=== PATIENT | female | born 1965 | race Caucasian/White ===

== ENCOUNTER → 2017-06-20 | Outpatient (CLI) | payer OTHER, SELFPAY | PROVIDERS: Visit Provider Family Medicine | DX: M54.32 Sciatica, left side (principal) | CPT/HCPCS: 72148; 76376 ==

== ENCOUNTER 2017-08-05 16:00 | Outpatient (RCR) | payer OTHER, SELFPAY | END 2017-08-05 16:01 | disposition home or self-care (01) | LOC: PT 16:00 | PROVIDERS: Family Provider Family Medicine; PCP Family Medicine; Visit Provider Neurological Surgery | DX: M54.5 Low back pain (principal) | CPT/HCPCS: 97033; 97110 ==

== ENCOUNTER → 2018-05-15 08:14 | Outpatient (CLI) | payer OTHER, SELFPAY ==
--- NOTE | 2018-05-15 08:22 | MM_ITS ---
MM Dig screening mamm BI w/CAD ORDERING PHYSICIAN : Jyotsna Nance MD PATIENT AGE: 53 years GENDER: Female COMPARISON: Bilateral mammogram March 2017, 2016 September 2014 . Left mammogram 17 INDICATION: ITS.REASON: SCREENING TECHNIQUE: Standard CC and MLO images were obtained. R2 CAD reviewed. FINDINGS: Low-density breast with generalized fatty replacement with minimal residual fibroglandular elements no suspicious calcifications. No suspicious or dominant mass RIGHT BREAST:. Stable No interval change. Follow-up in one year LEFT BREAST:. Stable. Follow-up in one year. The minor nodularity seen at the retroareolar region particularly on cc view is similar to 2015 & 2017 study with no significant new findings. IMPRESSION: Stable bilateral mammogram with no significant new findings. BI-RADS Category: 1 Negative RECOMMENDED FOLLOW-UP: 1YR 1 YEAR FOLLOW-UP (A letter has been sent to the patient regarding results of the study.)
== END ==
PROVIDERS: PCP Family Medicine; Visit Provider Family Medicine
DX: Z12.31 Encounter for screening mammogram for malignant neoplasm of breast (principal)
CPT/HCPCS: 77067

== ENCOUNTER → 2019-06-01 16:27 | Outpatient (CLI) | payer OTHER, SELFPAY ==
--- NOTE | 2019-06-01 16:31 | MM_ITS ---
PROCEDURE: MM DIG SCREENING MAMM BI W/CAD CLINICAL INDICATION: SCREENING There is a history of breast cancer patient's mother diagnosed before menopause. COMPARISON: DMSB DIG MAMM-SCREEN TJ W/CAD from 04/22/2017 DMDXUAVL DIG MAMM-DX UNI A/VWS-LT W/CAD from 05/02/2017 [facility] MM Dig screening mamm BI w/CAD from 05/15/2018 TECHNIQUE: Standard CC and MLO images were obtained. R2 CAD reviewed. FINDINGS: Breasts are composed primarily of fat with scattered fibroglandular densities throughout each breast. There is a stable benign-appearing small density just deep to the nipple of the left breast. There is no suspicious lesion and no suspicious microcalcifications. IMPRESSION: Fibrofatty parenchyma with no suspicious lesions seen BI-RAD Category: 2 Benign Finding(s) FOLLOW-UP: 1YR 1 Year Follow-up (A letter has been sent to the patient regarding results of the study.) Dictated by: Dr. Carlos William MD 06/02/2019 14:[address] Carlos William MD in [place] 06/02/2019 14:18
== END ==
PROVIDERS: PCP Family Medicine; Visit Provider Family Medicine
DX: Z12.31 Encounter for screening mammogram for malignant neoplasm of breast (principal)
CPT/HCPCS: 77067

== ENCOUNTER → 2020-06-10 16:01 | Outpatient (CLI) | payer OTHER, SELFPAY ==
--- NOTE | 2020-06-10 16:06 | MM_ITS ---
PROCEDURE: MM DIG SCREENING MAMM BI W/CAD Referring Doctor: David Hi Patient Age:55Y CLINICAL INDICATION: SCREENING 55-year-old screening mammogram No hormones, no new complaints Family history-mother with breast cancer age 40. COMPARISON: MG DMSB DIGITAL MAMM-SCREEN BILATERAL from 12/13/2011 MG DMSB DIG MAMM-SCREEN TJ from 10/25/2014 MG DMSB DIG MAMM-SCREEN TJ from 04/12/2016 MG DMSB DIG MAMM-SCREEN TJ W/CAD from 04/22/2017 MG DMDXUAVL DIG MAMM-DX UNI A/VWS-LT W/CAD from 05/02/2017 MG [facility] MM Dig screening mamm BI w/CAD from 05/15/2018 MG MM DIG SCREENING MAMM BI W/CAD from 06/01/2019 TECHNIQUE: Standard CC and MLO images were obtained. R2 CAD reviewed. Bilateral digital breast tomosynthesis included. FINDINGS: Minimal residual fibroglandular elements. Breast [id number] diffuse fatty replacement. Overall stable architecture scattered minor asymmetric densities but with no new areas of concern. No new suspicious or dominant mass.. No suspicious calcifications. CAD computer review highlights no new areas of significant the concern. Bilateral follow-up 1 year recommended Right breast no new areas of concern Small stable minor area density at superior right breast again noted stable since at least the 2014 and actually was seen back in 2007 mammogram as well Left breast no new areas of concern. Again stable tiny area of density towards 6 o'clock noted unchanged since multiple previous study dating back to 2014 IMPRESSION: Stable mammogram. No new areas of significant concern. Longstanding stable minor areas asymmetry withinotherwise fatty breast Routine annual 1 year screening mammogram recommended BI-RAD Category: 2 Benign Finding(s) FOLLOW-UP: 1YR 1 Year Follow-up (A letter has been sent to the patient regarding results of the study.) Dictated by: Bird Anderson MD 06/11/2020 12:32 Bird Anderson MD in [place] 06/11/2020 12:33
== END ==
PROVIDERS: PCP Family Medicine; Visit Provider Family Medicine
DX: Z12.31 Encounter for screening mammogram for malignant neoplasm of breast (principal)
CPT/HCPCS: 77063; 77067

== ENCOUNTER → 2020-12-07 15:24 | Outpatient (CLI) | payer OTHER, SELFPAY | PROVIDERS: Visit Provider Internal Medicine Gastroenterology | DX: Z01.812 Encounter for preprocedural laboratory examination (principal); Z20.822 Contact with and (suspected) exposure to COVID-19; Z12.11 Encounter for screening for malignant neoplasm of colon | CPT/HCPCS: U0003 ==

== ENCOUNTER 2020-12-09 07:43 | Day surgery (SDC) | payer OTHER, SELFPAY ==
[2020-12-01 08:41] VITALS: BMI 41.1
[2020-12-09 08:11] VITALS: BP 146/75; PULSE 77; RESP 18; TEMP 36.4; O2SAT 98
--- NOTE | 2020-12-09 08:56 | P.PN_ITS ---
[facility] Anesthesia Checklist - Structural Data Admitted From: Home Planned Operative Procedure/s: colonoscopy Consent for Planned Operative Procedure(s) Verified: Yes - Airway Assessment C-Spine Mobility Assessed: Yes TMJ Mobility Assessed: Yes Dentition: Good Dentition - Neurological Assessment Level of Consciousness: Awake, Alert, Appropriate - Anesthesia Plan Anesthesia Risk discussed: Yes Anesthesia Plan: Verified ASA Class: II Anesthesia Type: MAC [facility] History I have reviewed the patient's past medical history: Yes Medical History: Reports:: Hypertension Denies:: Cancer, Diabetes Mellitus Type 1, Diabetes Mellitus Type 2, Internal Pacemaker, MRSA, Seizures *Have you ever received a pneumonia vaccine?: No *Have you received a flu vaccine this season?: Yes Anesthesia experience/problems:: none Laterality Cases: Bilateral: Total Knee Replacement Other Surgeries: No: Pacemaker Amputation: No Fractures: No - *Social History Last grade of school completed: High school graduate Smoking Status: Never smoker Alcohol Intake: never Substance Use Type: denies use *Occupational Status:: employed Housing: house Household Members: spouse *Travel in the last 8 weeks: None Family Hx:: No significant family history
[2020-12-09 08:57] VITALS: O2SAT 97
--- NOTE | 2020-12-09 09:20 | HMH.PROC ---
[facility] Procedure Note Procedure Note:: Colonoscopy Procedure Report: Colonoscopy with cold snare polypectomy Endoscopist: Josias Lazo II, MD Referring physician: CARIDAD Woodward/Christiano Hi MD Date of Procedure: December 09, 2020 Equipment: Olympus 190 variable stiffness pediatric colonoscope Sedation: MAC sedation Indication: Mrs. Bradford is a 55-year-old female who is here for initial screening colonoscopy. She reports no abdominal pain, weight loss, change in her bowel habits or rectal bleeding. She reports no family history of colon cancer. Procedure: Prior to the procedure, a history and physical exam was performed, and patient's medications and allergies were reviewed. The risks, benefits and alternatives of the sedation and procedure were discussed with the patient. All questions were answered and informed consent was obtained. The patient was brought to the procedure room. Patient identification and proposed procedure were verified by the physician and the nurse. The patient was placed in a left lateral decubitus position and the scope was passed under direct vision. Throughout the procedure, the patient's blood pressure, pulse, and oxygen saturations were monitored continuously. The colonoscopy was accomplished without difficulty. The patient tolerated the procedure well. Findings: On digital rectal examination there was normal rectal tone. There were no external hemorrhoids. The colonoscope was introduced through the anal canal to the rectum and advanced to the cecum. The ileocecal valve and appendiceal orifice were identified. The scope was advanced a short distance into the ileum which appeared grossly normal. The scope was then withdrawn into the colon. There were 4 colon polyps (ascending x1 (12-13 mm), descending x2 (4 and 4 mm) and sigmoid x1 (5 mm)) which were all removed via cold snare polypectomy. There were scattered diverticuli throughout the descending and sigmoid colon (LEFT colon). The rectum itself was normal. Upon retroflexion within the rectum there were grade 1-2 internal hemorrhoids. The preparation was excellent throughout with Swain Preparation Score of 9. The cecal time was 12 minutes. Impression: 1. Colonic polyps x4 2. Left-sided diverticulosis 3. Grade 1-2 internal hemorrhoids Plan: I will follow up the polyp pathology and recommend repeat colonoscopy again in 3-5 years based upon the number and size of adenomatous polyps and polyp histology. I would encourage bulking fiber supplementation on a long-term daily maintenance basis.
[2020-12-09 09:25] VITALS: BP 150/81; PULSE 89; RESP 18; O2SAT 98
[2020-12-09 09:35] VITALS: BP 135/80; PULSE 85; RESP 18; O2SAT 98
[2020-12-09 09:45] VITALS: BP 142/83; PULSE 81; RESP 18; O2SAT 98
[2020-12-09 10:00] VITALS: BP 142/83; PULSE 87; RESP 18; O2SAT 98
== END 2020-12-09 10:10 | disposition home or self-care (01) ==
LOC: OUTP 07:45
PROVIDERS: PCP Family Medicine; Visit Provider Internal Medicine Gastroenterology
PROC: 0DJD8ZZ Inspection of Lower Intestinal Tract, Via Natural or Artificial Opening Endoscopic (ICD-10-PCS; CPT 45378; principal; 2020-12-09 09:00)
DX: Z12.11 Encounter for screening for malignant neoplasm of colon (principal); I10 Essential (primary) hypertension; Z88.0 Allergy status to penicillin; K63.5 Polyp of colon; K57.30 Diverticulosis of large intestine without perforation or abscess without bleeding; K64.0 First degree hemorrhoids; Z79.899 Other long term (current) drug therapy
CPT/HCPCS: 45385

== ENCOUNTER → 2021-06-22 08:07 | Outpatient (CLI) | payer OTHER, SELFPAY ==
--- NOTE | 2021-06-22 08:10 | MM_ITS ---
PROCEDURE INFORMATION: Exam: MG Bilateral Screening 3D Mammography Exam date and time: 06/22/2021 8:10 AM Age: 56 years old Clinical indication: Encounter for screening mammogram for malignant neoplasm of breast TECHNIQUE: Imaging protocol: Bilateral screening tomosynthesis and 2D mammography including computer-aided detection (CAD) when performed. COMPARISON: 1. MG MM DIG SCREENING MAMM BI W/CAD 06/10/2020 4:05 PM 2. MG MM DIG SCREENING MAMM BI W/CAD 06/01/2019 4:38 PM FINDINGS: MAMMOGRAPHY: Breast composition: The breast tissue is composed of scattered areas of fibroglandular density. Mass: None. Architectural distortion: None. Calcifications: No suspicious calcifications. Asymmetric density: None. Skin thickening: None. Axillary adenopathy: None. IMPRESSION: No mammographic evidence of malignancy. Annual screening is recommended unless otherwise clinically indicated. ASSESSMENT: BI-RADS Category 1: Negative
== END ==
PROVIDERS: PCP Nurse Practitioner; Visit Provider Nurse Practitioner
DX: Z12.31 Encounter for screening mammogram for malignant neoplasm of breast (principal)
CPT/HCPCS: 77063; 77067

== ENCOUNTER → 2022-02-05 06:39 | Outpatient (CLI) | payer OTHER, SELFPAY ==
[2022-02-05 19:30] LABS: Alanine Aminotransferase 20 U/L (12-78); Albumin/Globulin Ratio 1.4 (1.1-1.8); Alkaline Phosphatase 108 U/L (38-126); Anion Gap 11.4 mEq/L (5-15); Aspartate Amino Transferase 29 U/L (14-36); Blood Urea Nitrogen 16 mg/dl (7-17); Calcium 9.3 mg/dl (8.4-10.2); Carbon Dioxide 23 mmol/L (22.0-30.0); Chloride 107 mmol/L (98-107); Estimated Glomerular Filt Rate 86 ml/min (>60); GFR (African American) 104 ML/MIN (>60); Globulin 2.8 g/dL (1.3-3.2); Glucose 99 mg/dl (74-100); Potassium 4.4 mmoL/L (3.5-5.1); Sodium 137 mmol/L (136-145); Total Protein,Serum 6.8 g/dl (6.3-8.2)
[2022-02-05 19:48] LABS: Bilirubin,Total 0.1 mg/dl (0.2-1.3)
== END ==
PROVIDERS: PCP Nurse Practitioner; Visit Provider Nurse Practitioner
DX: I10 Essential (primary) hypertension (principal)
CPT/HCPCS: 80053

== ENCOUNTER → 2022-03-19 16:40 | Outpatient (CLI) | payer OTHER, SELFPAY ==
[2022-03-19 16:51] LABS: Adenovirus,PCR Not Detected (NotDetected); Bordetella Pertussis Not Detected (NotDetected); Chlamydophila Pneumoniae, PCR Not Detected (NotDetected); Coronavirus 19, PCR Not Detected (NotDetected); Coronavirus 229E Not Detected (NotDetected); Coronavirus NL63 Not Detected (NotDetected); Coronavirus OC43 Not Detected (NotDetected); Coronovirus HKU1,PCR Not Detected (NotDetected); Human Metapneumovirus Not Detected (NotDetected); Influenza A, PCR Not Detected (NotDetected); Influenza AH1, 2009 Not Detected (NotDetected); Influenza AH1, PCR Not Detected (NotDetected); Influenza AH3,PCR Not Detected (NotDetected); Influenza B, PCR Not Detected (NotDetected); Mycoplasma Pneumoniae, PCR Not Detected (NotDetected); Parainfluenza 1, PCR Not Detected (NotDetected); Parainfluenza 2, PCR Not Detected (NotDetected); Parainfluenza 3, PCR Not Detected (NotDetected); Parainfluenza 4, PCR Not Detected (NotDetected); Respiratory Syncytial Virus Not Detected (NotDetected); Rhinovirus/Enterovirus Not Detected (NotDetected)
--- NOTE | 2022-03-19 17:02 | XR_ITS ---
PROCEDURE INFORMATION: Exam: XR Chest Exam date and time: 03/19/2022 5:03 PM Age: 57 years old Clinical indication: Other: Chest pain TECHNIQUE: Imaging protocol: Radiologic exam of the chest. Views: 2 views. COMPARISON: CR CXR CHEST(2 VIEWS-NOT PORTABLE) 05/02/2016 11:53 AM FINDINGS: Lungs: Minimal regions of parenchymal scarring again demonstrated in the right upper lobe. Findings stable. Pleural spaces: Unremarkable. No pleural effusion. No pneumothorax. Heart/Mediastinum: Unremarkable. No cardiomegaly. Bones/joints: Unremarkable. IMPRESSION: No acute findings.
--- NOTE | 2022-03-19 17:14 | ECG_ITS ---
APPROVED REPORT Exam: Resting ECG HR:86 bpm ECG Measurements Heart Rate [address] 184 P 51 QRSd 96 QRS -40 QT 346 T 41 QTc 390 Conclusion SINUS RHYTHM LEFT AXIS DEVIATION Late r wave progression ABNORMAL ECG UNCONFIRMED REPORT Electronically signed by : Shiraz Powers MD 03/20/2022 21:10:11
[2022-03-19 17:48] LABS: Basophils # 0.1 K/mm3 (0-0.2); Basophils % 0.6 % (0.1-2.0); Eosinophils # 0.1 K/mm3 (0.0-0.4); Eosinophils % 1.1 % (0.1-12.0); Hematocrit 43.2 % (37.0-47.0); Hemoglobin 13.6 g/dL (12.2-16.2); Lymphocytes # 2.5 K/mm3 (0.7-4.5); Lymphocytes % 33.1 % (10-50); Mean Corpuscular HGB Conc 31.5 g/dL (31.8-35.4); Mean Corpuscular Hemoglobin 28.5 pg (27.0-31.2); Mean Corpuscular Volume 90.4 fl (81-99); Mean Platelet Volume 8.8 fl (7.4-10.4); Monocytes # 0.5 K/mm3 (0.1-1.0); Monocytes % 5.9 % (1.7-9.3); Neutrophils # 4.5 K/mm3 (1.8-7.8); Neutrophils % 59.2 % (37.0-80.0); Platelet Count 261 K/mm3 (142-424); Red Blood Count 4.78 M/mm3 (4.20-5.40); Red Cell Distribution Width 14.4 % (11.5-17.5); White Blood Count 7.6 K/mm3 (4.8-10.8)
[2022-03-19 18:36] LABS: Alanine Aminotransferase 24 U/L (12-78); Albumin Level 4.4 g/dl (3.5-5.0); Albumin/Globulin Ratio 1.5 (1.1-1.8); Alkaline Phosphatase 126 U/L (38-126); Anion Gap 16.5 mEq/L (5-15); Aspartate Amino Transferase 28 U/L (14-36); Blood Urea Nitrogen 18 mg/dl (7-17); Calcium 9.7 mg/dl (8.4-10.2); Carbon Dioxide 23 mmol/L (22.0-30.0); Chloride 102 mmol/L (98-107); Estimated Glomerular Filt Rate 103 ml/min (>60); GFR (African American) 124 ML/MIN (>60); Globulin 2.9 g/dL (1.3-3.2); Glucose 95 mg/dl (74-100); Potassium 4.5 mmoL/L (3.5-5.1); Sodium 137 mmol/L (136-145); Total Protein,Serum 7.3 g/dl (6.3-8.2)
[2022-03-19 18:42] LABS: C-Reactive Protein 10.3 mg/L (0-4)
[2022-03-19 18:47] LABS: NT Pro Brain Natriuretic Pep. 212 pg/mL (0-125)
[2022-03-19 19:27] LABS: Bilirubin,Total < 0.1 mg/dl (0.2-1.3); Troponin I < 0.01 ng/ml (0.00-0.034)
[2022-03-19 21:29] LABS: Erythrocyte Sedimentation Rate 17 mm/hr (0-30)
== END ==
LOC: LAB 16:42 → LAB.DROPOF 03-20 06:29
PROVIDERS: PCP Nurse Practitioner; Visit Provider Nurse Practitioner
DX: R07.9 Chest pain, unspecified (principal); I10 Essential (primary) hypertension; R53.83 Other fatigue; Z20.822 Contact with and (suspected) exposure to COVID-19
CPT/HCPCS: 36415; 71046; 80053; 83880; 84484; 85025; 85651; 86140; 87581; 87632; 87798; 93005; C9803; U0003; U0005

== ENCOUNTER → 2022-03-29 14:07 | Outpatient (CLI) | payer OTHER, SELFPAY ==
[2022-03-29 19:52] LABS: Anion Gap 14.2 mEq/L (5-15); Blood Urea Nitrogen 14 mg/dl (7-17); Calcium 9.2 mg/dl (8.4-10.2); Carbon Dioxide 27 mmol/L (22.0-30.0); Chloride 105 mmol/L (98-107); Estimated Glomerular Filt Rate 103 ml/min (>60); GFR (African American) 124 ML/MIN (>60); Glucose 86 mg/dl (74-100); Potassium 5.2 mmoL/L (3.5-5.1); Sodium 141 mmol/L (136-145)
== END ==
PROVIDERS: PCP Nurse Practitioner; Visit Provider Nurse Practitioner
DX: I10 Essential (primary) hypertension (principal)
CPT/HCPCS: 80048

== ENCOUNTER → 2022-07-10 07:36 | Outpatient (CLI) | payer OTHER, SELFPAY ==
--- NOTE | 2022-07-10 07:36 | MM_ITS ---
PROCEDURE INFORMATION: Exam: MG Bilateral Screening 3D Mammography Exam date and time: 07/10/2022 7:52 AM Age: 57 years old Clinical indication: Screening. Her mother had breast cancer at age 50. TECHNIQUE: Imaging protocol: Bilateral Screening tomosynthesis and 2D mammography including computer-aided detection (CAD) when performed. COMPARISON: 1. MG MM DIG SCREENING MAMM BI W/CAD 06/22/2021 8:18 AM 2. MG MM DIG SCREENING MAMM BI W/CAD 06/10/2020 4:05 PM 3. MG MM DIG SCREENING MAMM BI W/CAD 06/01/2019 4:38 PM 4. MG [facility] MM Dig screening mamm BI w/CAD 05/15/2018 8:41 AM FINDINGS: MAMMOGRAPHY: Breast composition: There are scattered areas of fibroglandular density. Mass: None. Architectural distortion: None. Calcifications: No suspicious calcifications. Asymmetric density: None. Skin thickening: None. Axillary adenopathy: None. IMPRESSION: No mammographic evidence of malignancy. Annual screening is recommended unless otherwise clinically indicated. ASSESSMENT: BI-RADS Category 1: Negative
== END ==
PROVIDERS: PCP Nurse Practitioner; Visit Provider Nurse Practitioner
DX: Z12.31 Encounter for screening mammogram for malignant neoplasm of breast (principal)
CPT/HCPCS: 77063; 77067

== ENCOUNTER → 2022-07-25 15:20 | Outpatient (CLI) | payer OTHER, SELFPAY ==
[2022-07-25 18:50] LABS: Adenovirus,PCR Not Detected (NotDetected); Bordetella Pertussis Not Detected (NotDetected); Chlamydophila Pneumoniae, PCR Not Detected (NotDetected); Coronavirus 19, PCR Not Detected (NotDetected); Coronavirus 229E Not Detected (NotDetected); Coronavirus NL63 Not Detected (NotDetected); Coronavirus OC43 Not Detected (NotDetected); Coronovirus HKU1,PCR Not Detected (NotDetected); Human Metapneumovirus Not Detected (NotDetected); Influenza A, PCR Not Detected (NotDetected); Influenza AH1, 2009 Not Detected (NotDetected); Influenza AH1, PCR Not Detected (NotDetected); Influenza AH3,PCR Not Detected (NotDetected); Influenza B, PCR Not Detected (NotDetected); Mycoplasma Pneumoniae, PCR Not Detected (NotDetected); Parainfluenza 1, PCR Not Detected (NotDetected); Parainfluenza 2, PCR Not Detected (NotDetected); Parainfluenza 3, PCR Not Detected (NotDetected); Parainfluenza 4, PCR Not Detected (NotDetected); Respiratory Syncytial Virus Not Detected (NotDetected); Rhinovirus/Enterovirus Not Detected (NotDetected)
[2022-07-25 19:45] LABS: Basophils % 0.5 % (0.1-2.0); Eosinophils # 0.1 K/mm3 (0.0-0.4); Eosinophils % 1.6 % (0.1-12.0); Hematocrit 41.7 % (37.0-47.0); Hemoglobin 13.5 g/dL (12.2-16.2); Lymphocytes # 1.5 K/mm3 (0.7-4.5); Mean Corpuscular HGB Conc 32.4 g/dL (31.8-35.4); Mean Corpuscular Hemoglobin 28.8 pg (27.0-31.2); Mean Platelet Volume 9.6 fl (7.4-10.4); Monocytes # 0.5 K/mm3 (0.1-1.0); Monocytes % 10.8 % (1.7-9.3); Neutrophils # 2.7 K/mm3 (1.8-7.8); Neutrophils % 56.1 % (37.0-80.0); Platelet Count 252 K/mm3 (142-424); Red Blood Count 4.68 M/mm3 (4.20-5.40); Red Cell Distribution Width 14.1 % (11.5-17.5); White Blood Count 4.8 K/mm3 (4.8-10.8)
== END ==
PROVIDERS: PCP Nurse Practitioner; Visit Provider Nurse Practitioner
DX: J06.9 Acute upper respiratory infection, unspecified (principal)
CPT/HCPCS: 85025; 87581; 87632; 87798; C9803; U0003; U0005

== ENCOUNTER 2023-07-13 09:10 | Emergency (ER) | payer BC, OTHER, SELFPAY ==
[2023-07-13 09:24] VITALS: BP 147/99; PULSE 91; RESP 18; TEMP 37.1; O2SAT 95; BMI 41.1
--- NOTE | 2023-07-13 09:46 | EXP.UTC ---
Discharge Plan Disposition Patient Disposition: Home, Self-Care Condition: Good Prescriptions Prescriptions: New losartan 50 mg tablet 50 mg PO DAILY Qty: 30 0RF Rx Instructions: Do not take Lisinopril with this medication. methylprednisolone [Medrol (Sony)] 4 mg tablets,dose pack See Rx Instructions .ROUTE .COMPLEX 6 Days Qty: 21 0RF Rx Instructions: 4 mg orally ;Medrol dose taper sony No Action albuterol sulfate 90 mcg/actuation HFA aerosol inhaler 2 puff inhalation Q4-6H PRN (Reason: shortness of breath or wheezing) Qty: 8.5 0RF promethazine-DM 6.25-15 mg/5 mL syrup 5 ml PO Q4-6H PRN (Reason: cough) Qty: 240 0RF doxycycline hyclate 100 mg tablet 100 mg PO BID Qty: 20 0RF lisinopril 10 mg tablet See Rx Instructions .ROUTE .COMPLEX Qty: 30 0RF Dose Instruction: TAKE 1 TABLET BY MOUTH DAILY Rx Instructions: TAKE 1 TABLET BY MOUTH DAILY Referrals Follow up/Referrals: Ilana Weaver APRN [Primary Care Provider] - See instructions Activity Restrictions/Add. Instructions Additional Instructions/Restrictions: Do not take Lisinopril with Losartan. Make a follow up appointment with PCP next week. Increase fluids and rest. Take medication as prescribed. Clinical Impressions Clinical Impression: Cough present for greater than 3 weeks, Primary hypertension Instructions Patient Instructions: DI for POPPY Inhibitor Cough, DI for Cough -- Adult Discharge ED Provider: Sofia Celment [facility] General Stated complaint: cough congestion [place] Mode of Arrival: Ambulatory Source of Information: Patient Limitations: No Limitations Time Seen by Provider: 07/13/23 09:31 Description of Symptoms (Recalled from Triage Doc. by RN): Pt's symptoms are DU[place], and cough. [facility] and has not seem to go away/. HEENT Symptoms (Recalled from RN notes): Yes Resp Symptoms (Recalled from RN notes): No Skin Symptoms (Recalled from RN notes): No MS Symptoms (Recalled from RN notes): No Functional Status (Recalled from RN notes): n/a History of Present Illness Provider Complaint: Pt relates that she had Covid a month ago and has not been able to stop coughing since. She saw her PCP on Saturday and she was given antibiotics and cough medication. She was also informed to stop her lisinopril at that time and relates that she has not had her blood pressure medication for the last 2 days. She states that she continues to have a strong cough and a headache. Related Data Previous Rx's Medication Instructions Recorded albuterol sulfate 90 mcg/actuation 2 puff inhalation Q4-6H PRN 06/13/23 aerosol inhaler shortness of breath or wheezing #8.5 grams lisinopril 10 mg tablet See Rx Instructions .Route 07/02/23 .COMPLEX #30 tabs doxycycline hyclate 100 mg tablet 100 mg PO BID #20 tabs 07/10/23 promethazine-DM 6.25 mg-15 mg/5 mL 5 ml PO Q4-6H PRN cough #240 mL 07/10/23 oral syrup losartan 50 mg tablet 50 mg PO DAILY #30 tabs 07/13/23 methylprednisolone 4 mg tablets in See Rx Instructions .Route 07/13/23 a dose pack (Medrol (Sony)) .COMPLEX 6 days #21 tabs Allergies Allergy/AdvReac Type Severity Reaction Status Date / Time Penicillins Allergy Intermediate I-HIVES Verified 07/10/23 15:02 Worker's Comp Is this a Worker's Comp case?: No [facility] Disclaimer: The information contained in this section may have been updated after the patient was seen, as this information can be updated by other users. 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 current occupational exposures/hazards: No caffeine: Yes ROS Obtained: Yes All systems reviewed & no additional complaints except as documented Constitutional Constitutional: Reports system reviewed and no additional complaints, except as documented, Reports headache(s) and Reports malaise Eyes Eyes: Reports system reviewed and no additional complaints, except as documented ENT Ears, Nose, Mouth, and Throat: Reports system reviewed and no additional complaints, except as documented, Reports headache(s), Reports nasal congestion, Reports nasal discharge and Reports sinus pressure Cardiovascular Cardiovascular: Reports system reviewed and no additional complaints, except as documented Respiratory Respiratory: Reports system reviewed and no additional complaints, except as documented and Reports non-productive cough Gastrointestinal Gastrointestingal: Reports system reviewed and no additional complaints, except as documented Genitourinary Female Genitourinary: Reports system reviewed and no additional complaints, except as documented Musculoskeletal Musculoskeletal: Reports system reviewed and no additional complaints, except as documented Integumentary/Breasts Skin/Breast: Reports system reviewed and no additional complaints, except as documented Neurologic Neurologic: Reports system reviewed and no additional complaints, except as documented and Reports headache(s) Endocrine Endocrine: Reports system reviewed and no additional complaints, except as documented Hematologic/Lymphatic Henatologic/Lymphatic: Reports system reviewed and no additional complaints, except as documented Allergic/Immunologic Allergic/Immunologic: Reports system reviewed and no additional complaints, except as documented Physical Exam General General appearance: alert and in no apparent distress Head Head exam: atraumatic and normocephalic Eye Eye exam: Present normal appearance Expanded ENT Exam External ear exam: Present normal external inspection Nasal speculum exam: Bilateral: other (clear drainage. Edematous mucosa) Mouth exam: Present normal external inspection Teeth exam: Present normal inspection Throat exam: Present normal inspection Neck Neck exam: Present normal inspection Chest Chest inspection: Present normal inspection and symmetric chest wall rise Respiratory Respiratory exam: Present normal lung sounds bilaterally and other (strong dry cough noted) Cardiovascular Cardiovascular exam: Present regular rate and normal rhythm Abdominal Exam Abdominal exam: Present soft and normal bowel sounds Extremities Exam Extremities exam: Present normal inspection Back Exam Back exam: Present normal inspection Neurological Exam Neurological exam: Present alert and oriented X3 Psychiatric Psychiatric exam: Present normal affect and normal mood Skin Skin exam: Present warm, dry and intact Lymphatic Lymphatic Findings: no adenopathy Medical Decision Making Jace Inquiry Pt receiving controlled substance: No Jace was queried for this patient: No Vital Signs: 07/13/23 09:24 Temperature 98.7 F Temperature Source Oral Pulse Rate [Right Radial] 91 H Respiratory Rate 18 Blood Pressure [Right Arm] 147/99 H Blood Pressure Mean [Right Arm] 115 02 Sat by Pulse Oximetry 95 Oxygen Delivery Method Room Air
--- NOTE | 2023-07-13 09:57 | PC.NURSE ---
Pt was taken off lisinopril to make sure it was not causing the cough. She has hx of HTN. Treating the HTN and told her to follow up with PCP.
[2023-07-13 10:00] VITALS: BP 147/99; PULSE 91; RESP 18; TEMP 37.1; O2SAT 95
== END 2023-07-13 09:59 | disposition home or self-care (01) ==
PROVIDERS: Emergency Provider Nurse Practitioner Family; PCP Nurse Practitioner
DX: R05.8 Other specified cough (principal); R51.9 Headache, unspecified; R09.81 Nasal congestion; I10 Essential (primary) hypertension; Z86.16 Personal history of COVID-19
CPT/HCPCS: 99204; 99212; G0463

== ENCOUNTER 2023-07-13 10:03 | Outpatient (CLI) | payer BC, OTHER, SELFPAY ==
--- NOTE | 2023-07-13 10:08 | XR_ITS ---
PROCEDURE INFORMATION: Exam: XR Chest Exam date and time: 07/13/2023 10:09 AM Age: 58 years old Clinical indication: Cough TECHNIQUE: Imaging protocol: Radiologic exam of the chest. Views: 2 views. COMPARISON: CR XR CHEST 2V 03/19/2022 5:03 PM FINDINGS: Lungs: No evidence of acute pulmonary disease or infiltrates Pleural spaces: No large effusion or pneumothorax. Heart/Mediastinum: Stable cardiac and mediastinal contours. Bones/joints: There are flowing anterior osteophytes seen on the lateral view which may reflect diffuse idiopathic skeletal hyperostosis. There are degenerative changes of the thoracic spine. IMPRESSION: No dense parenchymal consolidation, pleural effusion, or pneumothorax.
== END 2023-07-13 23:59 ==
PROVIDERS: PCP Nurse Practitioner; Visit Provider Nurse Practitioner
DX: R05.3 Chronic cough (principal)
CPT/HCPCS: 71046

== ENCOUNTER 2023-07-15 18:50 | Outpatient (CLI) | payer BC, OTHER, SELFPAY ==
[2023-07-15 18:28] LABS: Basophils % 0.3 % (0.1-2.0); Eosinophils % 0.1 % (0.1-12.0); Hematocrit 42.7 % (37.0-47.0); Hemoglobin 13.8 g/dL (12.2-16.2); Lymphocytes # 1.5 K/mm3 (0.7-4.5); Lymphocytes % 32.9 % (10-50); Mean Corpuscular HGB Conc 32.4 g/dL (31.8-35.4); Mean Corpuscular Hemoglobin 29.7 pg (27.0-31.2); Mean Corpuscular Volume 91.6 fl (81-99); Mean Platelet Volume 9.5 fl (7.4-10.4); Monocytes # 0.4 K/mm3 (0.1-1.0); Monocytes % 8.9 % (1.7-9.3); Neutrophils # 2.7 K/mm3 (1.8-7.8); Neutrophils % 57.8 % (37.0-80.0); Platelet Count 176 K/mm3 (142-424); Red Blood Count 4.66 M/mm3 (4.20-5.40); Red Cell Distribution Width 14.4 % (11.5-17.5); White Blood Count 4.6 K/mm3 (4.8-10.8)
[2023-07-15 18:48] LABS: Alanine Aminotransferase 30 U/L (12-78); Albumin Level 3.8 g/dl (3.5-5.0); Albumin/Globulin Ratio 1.5 (1.1-1.8); Alkaline Phosphatase 84 U/L (38-126); Anion Gap 12.2 mEq/L (5-15); Aspartate Amino Transferase 34 U/L (14-36); Bilirubin,Total 0.3 mg/dl (0.2-1.3); Blood Urea Nitrogen 13 mg/dl (7-17); Calcium 8.2 mg/dl (8.4-10.2); Carbon Dioxide 27 mmol/L (22.0-30.0); Chloride 104 mmol/L (98-107); Estimated Glomerular Filt Rate 102 ml/min (>60); GFR (African American) 124 ML/MIN (>60); Globulin 2.5 g/dL (1.3-3.2); Glucose 93 mg/dl (74-100); Potassium 4.2 mmoL/L (3.5-5.1); Sodium 139 mmol/L (136-145); Total Protein,Serum 6.3 g/dl (6.3-8.2)
== END 2023-07-15 23:59 ==
PROVIDERS: PCP Nurse Practitioner; Visit Provider Nurse Practitioner
DX: I10 Essential (primary) hypertension (principal); R05.3 Chronic cough
CPT/HCPCS: 80053; 85025

== ENCOUNTER 2024-03-12 17:02 | Outpatient (CLI) | payer BC, OTHER, SELFPAY ==
--- NOTE | 2024-03-12 17:13 | XR_ITS ---
PROCEDURE INFORMATION: Exam: XR Chest Exam date and time: 03/12/2024 5:15 PM Age: 59 years old Clinical indication: Cough; Additional info: Cough, pneumonia TECHNIQUE: Imaging protocol: Radiologic exam of the chest. Views: 2 views. COMPARISON: 1. CR XR CHEST 2V 07/13/2023 10:09 AM 2. CR XR CHEST 2V 03/19/2022 5:03 PM FINDINGS: Lungs: Unremarkable. No consolidation. Pleural spaces: Unremarkable. No pleural effusion. No pneumothorax. Heart/Mediastinum: Unremarkable. No cardiomegaly. Bones/joints: Unremarkable. IMPRESSION: Stable chest x-ray with no acute disease.
[2024-03-12 19:29] LABS: Coronavirus 19, PCR Not Detected (NotDetected); Influenza A, PCR Not Detected (NotDetected); Influenza B, PCR Not Detected (NotDetected)
== END 2024-03-12 23:59 | disposition home or self-care (01) ==
LOC: RAD 17:05
PROVIDERS: PCP Nurse Practitioner; Visit Provider Nurse Practitioner
DX: R05.9 Cough, unspecified (principal); J06.9 Acute upper respiratory infection, unspecified
CPT/HCPCS: 71046; 87636

== ENCOUNTER 2024-04-28 10:48 | Outpatient (CLI) | payer BC, OTHER, SELFPAY ==
--- NOTE | 2024-04-28 10:48 | MM_ITS ---
PROCEDURE INFORMATION: Exam: MG Bilateral Screening 3D Mammography Exam date and time: 04/28/2024 10:49 AM Age: 59 years old Clinical indication: Screening exam TECHNIQUE: Imaging protocol: Bilateral Screening tomosynthesis and 2D mammography including computer-aided detection (CAD) when performed. COMPARISON: 1. MG MM DIG SCREENING MAMM BI W/CAD 07/10/2022 7:52 AM 2. MG MM DIG SCREENING MAMM BI W/CAD 06/22/2021 8:18 AM FINDINGS: MAMMOGRAPHY: Breast composition: There are scattered areas of fibroglandular density. Mass: No suspicious masses. Architectural distortion: None. Calcifications: No suspicious calcifications. Asymmetric density: None. Skin thickening: None. Axillary adenopathy: None. IMPRESSION: No mammographic evidence of malignancy. Annual screening is recommended unless otherwise clinically indicated. ASSESSMENT: BI-RADS Category 1: Negative.
== END 2024-04-28 23:59 | disposition home or self-care (01) ==
LOC: RAD 10:48
PROVIDERS: PCP Nurse Practitioner; Visit Provider Nurse Practitioner
DX: Z12.31 Encounter for screening mammogram for malignant neoplasm of breast (principal)
CPT/HCPCS: 77063; 77067

== ENCOUNTER 2024-08-12 15:15 | Outpatient (CLI) | payer BC, OTHER, SELFPAY ==
[2024-08-12 18:35] LABS: Coronavirus 19, PCR Not Detected (NotDetected); Human Rhinovirus Not Detected (NotDetected); Influenza A, PCR Not Detected (NotDetected); Influenza B, PCR Not Detected (NotDetected); Respiratory Syncytial Virus Not Detected (NotDetected)
== END 2024-08-12 23:59 | disposition home or self-care (01) ==
LOC: LAB.DROPOF 08-13 11:27
PROVIDERS: PCP Nurse Practitioner; Visit Provider Nurse Practitioner
DX: R05.3 Chronic cough (principal); R09.81 Nasal congestion
CPT/HCPCS: 87631

== ENCOUNTER 2025-03-16 16:35 | Outpatient (CLI) | payer BC, OTHER, SELFPAY ==
[2025-03-16 19:31] LABS: Hematocrit 42.9 % (37.0-47.0); Hemoglobin 13.6 g/dL (12.2-16.2); Immature Granulocytes % 0.2 %; Mean Corpuscular HGB Conc 31.7 g/dL (31.8-35.4); Mean Corpuscular Hemoglobin 28.6 pg (27.0-31.2); Mean Corpuscular Volume 90.3 fl (81-99); Nucleated Red Blood Cells % 0 %; Platelet Count 201 K/mm3 (142-424); Red Blood Count 4.75 M/mm3 (4.20-5.40); Red Cell Distribution Width-SD 46.3 fL; White Blood Count 5.8 K/mm3 (4.8-10.8)
[2025-03-16 20:21] LABS: Albumin Level 4.5 g/dl (3.5-5.0); Chloride 103 mmol/L (98-107)
[2025-03-16 20:22] LABS: Potassium 4.8 mmoL/L (3.5-5.1); Sodium 137 mmol/L (136-145)
[2025-03-16 20:24] LABS: Alanine Aminotransferase 23 U/L (12-78); Albumin/Globulin Ratio 1.6 (1.1-1.8); Anion Gap 14.8 mEq/L (5-15); Aspartate Amino Transferase 28 U/L (14-36); Blood Urea Nitrogen 22 mg/dl (7-17); Carbon Dioxide 24 mmol/L (22.0-30.0); Creatinine,Serum 0.70 mg/dl (0.52-1.04); Estimated Glomerular Filt Rate 85 ml/min (>60); GFR (African American) 103 ML/MIN (>60); Globulin 2.8 g/dL (1.3-3.2); Total Protein,Serum 7.3 g/dl (6.3-8.2)
[2025-03-16 20:25] LABS: Alkaline Phosphatase 89 U/L (38-126); Bilirubin,Total 0.4 mg/dl (0.2-1.3); Calcium 10.0 mg/dl (8.4-10.2); Cholesterol 198 mg/dl (140-200); Glucose 96 mg/dl (74-100); HDL Cholesterol 70 mg/dl (40-60); Triglycerides 97 mg/dl (30-150)
[2025-03-16 20:58] LABS: Thyroid Stimulating Hormone 1.37 uIU/mL (0.465-4.68)
[2025-03-16 21:16] LABS: Hepatitis C Ab Qual. W/ RFX NEGATIVE (Negative)
--- OUTSIDE RECORDS SUMMARY | 2025-03-17 10:39 | XMS_ITS | Clinical Summary ---
Author Organization [facility] yste Address [address] [place] [address] Care Team Providers Care Recreational Specialist Name Role Phone Unavailable Primary Care Provider Unavailabl e Social History Tobacco Use Types Packs/Day Years Used Date Smoking Tobacco: Never Assessed Abuse Screen Answer Date Recorded Unsafe at Home or Work/School Not on file Feels Threatened by Someone? Not on file 03/2023 Does Anyone Keep You from Co ntacting Others or Doint Things Outside the Home? Not on file 04/09/2023 Physical Sign of Abuse Present Not on file 1 Housing Stability Answer Date Recorded Current Living Arrangements Not on file 03/31 Potentially Unsafe Housing Conditions Not on eulogio e 04/09/2023 Family and Community Support Answer Scott e Recorded Help with Day-to-Day Activities Not on file 04/09/2023 Lonely or Isolated Not on file 04/09/2023 Employment Answer Date Recorded Do you want help finding or keeping work or a kodak b? Not on file 04/09/2023 Disabilities Answer Date Recorded Concentrating, Remembering, or Making Decisions Difficulty Not on file 04/09/2023 Doing Errands Independently Difficulty Not on fi le 04/09/2023 Education Answer Date Recorded Help with school or training? Not on file Preferred Language Not on file 04/09/2023 Comments Unknown Sex and Gender Information Value Date Recorded Sex Assigned at Not on file Legal Sex Female 1:41 PM EDT Gender Identity Not on file Sexual Orientation Not on file Plan of Treatment Health Maintenance Due Date Last Done Comments ANNUAL PHYSICAL 1965 Annual Gynecologic Pelvic and Breast Exam 1965 HEPATITIS C SCREENING 1965 TDAP/TD VACCINES (1 - Tdap) 01/12/1983 MAMMOGRAM 2004 COLOGUARD 01/12/2009 COLON CANCER SCREENING 5 YEAR SIGMOIDOSCOPY 01/12/2009 COLONOSCOPY 01/12/2009 COLORECTAL CANCER SCREENING 01/12/2009 CT COLONOGRAPHY 01/12/2009 FECAL OCCULT BLOOD TEST 01/12/2009 FIT Testing (1 year) 01/12/2009 Pneumococcal Vaccine 50+ (1 of 1 - PCV) 01/12/2014 ZOSTER VACCINE (1 of 2) 01/12/2014 COVID-19 Vaccine (1 - season) 2025 INFLUENZA VACCINE 03/31/2025
[2025-03-18 23:16] LABS: Hepatitis B Surface Antigen Negative (Negative)
== END 2025-03-16 23:59 | disposition home or self-care (01) ==
LOC: LAB.DROPOF 03-17 10:35
PROVIDERS: PCP Nurse Practitioner; Visit Provider Nurse Practitioner
DX: Z11.59 Encounter for screening for other viral diseases (principal); I10 Essential (primary) hypertension; E66.9 Obesity, unspecified
CPT/HCPCS: 80053; 80061; 82043; 82570; 84443; 85025; 86803; 87340; 87389

== ENCOUNTER 2025-03-19 08:58 | Outpatient (CLI) | payer BC, OTHER, SELFPAY ==
--- NOTE | 2025-03-19 09:05 | XR_ITS ---
FINAL REPORT CLINICAL HISTORY: palpitations COMPARISON: 03/12/2024 FINDINGS: CHEST 2 VIEWS No acute pulmonary density is evident. There is no evidence of effusion or other pleural disease. The mediastinum has a normal appearance. The cardiac silhouette is unremarkable. IMPRESSION: Unremarkable chest exam. Reviewed, Interpreted and Dictated by Jyotsna Kumari MD Transcribed by Vonda Garcia Authenticated and [facility]
--- OUTSIDE RECORDS SUMMARY | 2025-03-19 09:06 | XMS_ITS | Clinical Summary ---
Author Organization [facility] yste Address [address] [place] [address] Care Team Providers Care Breaking Machine Operator Name Role Phone Unavailable Primary Care Provider [...] 01/12/2014 ZOSTER VACCINE (1 of 2) 01/12/2014 INFLUENZA VACCINE 01/29/2025
--- NOTE | 2025-03-19 09:20 | ECG_ITS ---
APPROVED REPORT Exam: Resting ECG HR:61 bpm ECG Measurements Heart Rate 61 AXES GA 195 P 29 QRSd 96 QRS -26 QT 387 T 15 QTc 391 Conclusion SINUS RHYTHM LOW QRS VOLTAGE IN PRECORDIAL LEADS [QRS DEFLECTION < 1.0 mV IN CHEST LEADS] POSSIBLE ANTERIOR MYOCARDIAL INFARCTION , PROBABLY OLD [30 ms Q WAVE IN V3/V4, OR R < 0.2 mV IN V4] BORDERLINE ECG UNCONFIRMED REPORT Electronically signed by : Shiraz Powers MD 03/21/2025 20:24:49
== END 2025-03-19 23:59 | disposition home or self-care (01) ==
PROVIDERS: PCP Nurse Practitioner; Visit Provider Nurse Practitioner
DX: I47.19 Other supraventricular tachycardia (principal); R94.31 Abnormal electrocardiogram [ECG] [EKG]
CPT/HCPCS: 71046; 93005; 93225; 93227

== ENCOUNTER 2025-04-05 15:06 | Outpatient (CLI) | payer BC, OTHER, SELFPAY ==
--- OUTSIDE RECORDS SUMMARY | 2025-04-05 15:08 | XMS_ITS | Clinical Summary ---
Author Organization [facility] yste Address [address] [place] [address] Care Team Providers Care Mixing Machine Operator Name Role Phone Unavailable Primary [...]
--- NOTE | 2025-04-05 15:15 | CA_ITS ---
APPROVED REPORT EXAM: Comprehensive 2D, Doppler, and color-flow Echocardiogram Engineering Technology Instructor: Sandhya Dennis, RT(R) Ht: 5 ft 4 in Wt: 258lbs BSA: 2.18 BP: 133/88 mmHg Indications: palpitations, Hypertension 2D Dimensions Aortic Root 1.97 cm F: 2.7 - 3.3 LVEF (Yanez's) 46.30 % F: 54 - 74 Left Atrium 3.05 cm F: 2.7 - 3.8 LV Volume 120.20 mL F: 46 - 106 LV Volume Index 55.1 mL/m2 F: 29 - 61 EF AP4 58.60 % EF AP2 37.1 % EF BP 46.3 % GL Strain -17.4 % M-Mode Dimensions RVDd 2.37 cm (0.9-2.6) LVDd 4.78 cm (3.5-5.7) Ao Diam 3.00 cm (2.0-3.7) LVDs 3.58 cm (3.5-5.7) IVSd 0.98 cm (0.6-1.1) PWd 0.85 cm (0.6-1.1) EF (Teich) 49.60% FS 25.10% EDV (Teich) 106.50 mL ESV (Teich) 53.70 mL LV Diastology E Decel Time 194 (160-240 msec) E/A Ratio 0.9 MED E' 10.4 (>= 7 cm/sec) E'/MED E' Ratio 6.85 (<= 14) LAT E' 10.4 (>= 10 cm/sec) E/LAT E' Ratio 6.85 (<= 14) Mitral Valve MV E Max Rusatm. 71.0 (40-130 cm/s) MV A Velocity 81.0 (40-130 cm/s) E/A Ratio 0.88 MV Decel. Time 194 (160-240 ms) Left Ventricle The left ventricle is normal size. Left ventricular systolic function is normal. The left ventricular ejection fraction is within the normal range. There is normal left ventricular wall thickness. There is normal LV segmental wall motion. The left ventricular diastolic function is normal. LVEF is 55%. Right Ventricle The right ventricle is normal size. The right ventricular systolic function is normal. Atria The left atrium size is normal. The right atrium size is normal. There is no color Doppler evidence of interatrial shunt. Aortic Valve The aortic valve opens well. There is no hemodynamically significant aortic valvular stenosis. No aortic regurgitation is present. Mitral Valve The mitral valve is normal in structure. No evidence of mitral valve stenosis. Trace mitral regurgitation is present. Tricuspid Valve The tricuspid valve leaflets are thin and pliable. Trace tricuspid regurgitation. There is insufficient TR jet to estimate RVSP. Pulmonic Valve The pulmonary valve is grossly normal in structure. Trace pulmonic valve regurgitation is present. Great Vessels The aortic root is normal in size. IVC is normal in size and collapses >50% with inspiration. Pericardium There is no pericardial effusion. Other Information Study Quality: Fair Conclusion Normal biventricular systolic function. No significant valvular stenosis or regurgitation. Electronically signed by : Maria Ines Stern MD 04/05/2025 22:40:58
== END 2025-04-05 23:59 | disposition home or self-care (01) ==
LOC: RT 15:06
PROVIDERS: PCP Nurse Practitioner; Visit Provider Nurse Practitioner
DX: I10 Essential (primary) hypertension (principal); R00.2 Palpitations
CPT/HCPCS: 93306

== ENCOUNTER 2025-04-07 17:21 | Outpatient (CLI) | payer BC, OTHER, SELFPAY | END 2025-04-07 23:59 | disposition home or self-care (01) | LOC: OUTP 17:23 | PROVIDERS: PCP Nurse Practitioner; Visit Provider Nurse Practitioner | DX: I49.1 Atrial premature depolarization (principal); I47.19 Other supraventricular tachycardia; I49.3 Ventricular premature depolarization; R94.31 Abnormal electrocardiogram [ECG] [EKG] | CPT/HCPCS: 93270 ==

== ENCOUNTER 2025-05-20 11:02 | Day surgery (SDC) | payer BC, OTHER, SELFPAY ==
--- NOTE | 2025-05-14 16:44 | P.HP_ITS ---
History of Present Illness *Admission Date: 05/20/25 *History of present illness: Mrs. Bradford is a 60-year-old female who is here for screening/surveillance colonoscopy. She does have a personal history of adenomatous colon polyps. She did have an initial screening colonoscopy in November 2020 and had 4 adenomatous polyps (4, 4 and 5 mm tubular adenomas x 3 and 12 to 13 mm tubulovillous adenoma x 1) removed. The patient reports no abdominal pain, weight loss, change in her bowel habits or rectal bleeding. She reports no family history of colon cancer. The examination is deemed medically necessary for screening/surveillance colonoscopy. The patient has been seen, interviewed and examined prior to the procedure by both myself and the anesthesia provider. [facility] Disclaimer: The information contained in this section may have been updated after the patient was seen, as this information can be updated by other users. 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 current occupational exposures/hazards: No caffeine: Yes Have you lived/traveled outside [place] in past 30 days?: No Contact w/someone who lives/traveled outside US past 30 days?: No Exposure to someone with infectious disease in past 14 days?: No Do you have a fever (greater than 100.4 F or 38 C)?: No Have you tested positive for COVID-19?: No Exposed to someone with COVID-19 in past 14 days?: No Do you have a sore throat?: No Do you have a cough?: No Do you have any weakness?: No Do you have any diarrhea?: No Are you experiencing any unusual bleeding?: No Do you have any muscle aches/pain?: No Do you have any abdominal pain?: No Are you experiencing loss of taste or smell?: No Other Medical History Have you received the Flu Vaccine for this season: Yes Have you received the Pneumonia Vaccine: No Review of Systems Review of Systems Review of systems (narrative): Negative *Cardiovascular Comments: Negative *Gastrointestinal Comments: Negative *Genitourinary Comments: Negative *Musculoskeletal Comments: Negative *Neurologic Comments: Negative Meds Home Medications and Allergies Home Medications ?Medication ?Instructions ?Recorded ?Confirmed ?Type albuterol sulfate 90 mcg/actuation 2 puff inhalation Q 4-6H PRN 04/13/25 04/27/25 Rx aerosol inhaler shortness of breath or wheez ing #8.5 grams doxycycline hyclate 100 mg tablet 100 mg PO BID #20 ta bs 04/13/25 04/27/25 Rx fluconazole 150 mg tablet 150 mg PO WEEKLY #2 tabs 04/27/25 Rx methylprednisolone 4 mg tablets in See Rx Instructions PO PER PKG DIR 04/13/25 04/27/25 Rx a dose pack #21 tabs lisinopril 10 mg tablet See Rx Instructions .Route 1 07/04/24 05/18/25 Rx .COMPLEX #90 tabs benzonatate 200 mg capsule 200 mg PO TID PRN cough #30 caps 05/05/25 05/18/25 Rx dextromethorphan-guaifenesin ER 60 1 tab PO Q12H #60 t abs 05/05/25 Rx mg-1,200 mg tab,extend release,12hr sodium,potassium,mag sulfates 17.5 See Rx Instructions PO .COMPLEX 05/07/25 Rx gram-3.13 gram-1.6 gram oral soln #354 mL (Suprep Bowel Prep Kit) dextromethorphan-guaifenesin 30 1 tab PO Q12H PRN Alfredo rgy Symptoms 05/18/25 05/18/25 History mg-600 mg tablet extended [id number] hr (Mucinex DM) diphenhydramine HCl 25 mg tablet 25 mg PO TID PRN Alfredo rgy Symptoms 05/18/25 05/18/25 History New Prescriptions to Start Prescriptions: Allergies Allergy/AdvReac Type Severity Reaction Status Date / Time Penicillins Allergy Intermediate I-HIVES Verified 11/18/25 15:36 Exam *Routine HEENT Exam Head: Present normocephalic Eye: Present EOMI and PERRL ENT: Present mucous membranes moist *Routine Neck Exam Neck: Present supple *Routine Respiratory Exam Respiratory: Present CTA bilaterally *Routine Cardiovascular Exam Cardiovascular: Present RRR *Routine Abdominal Exam Abdominal: Present soft and normoactive bowel sounds; Absent tenderness *Routine Rectal Exam Rectal:: deferred *Routine Genitalia Exam Genitalia:: deferred *Routine Extremities Exam Extremities: Absent cyanosis, clubbing or edema *Routine Skin Exam Skin: Present warm; Absent rash *Routine Neurological Exam Neurological: Present alert and oriented X3 Assessment and Plan *Assessment and plan (1) Personal history of adenomatous and serrated colon polyps: Status: Acute Category: Medical Code(s): Z86.0101 - Personal history of adenomatous and serrated colon polyps (2) Screening for colon cancer: Status: Acute Category: Medical Code(s): Z12.11 - Encounter for screening for malignant neoplasm of colon (3) Tubulovillous adenoma of colon: Status: Acute Category: Medical Code(s): D12.6 - Benign neoplasm of colon, unspecified Plan A/P: 1. Personal history of adenomatous colon polyps with prior tubulovillous adenoma of the ascending colon is the preprocedural diagnosis. The patient will be anesthetized/sedated using MAC sedation. The patient has been seen and examined. Cardiac and lung assessment prior to the examination is stable. Proceed with planned screening/surveillance colonoscopy.
[2025-05-18 15:42] VITALS: BMI 42.9
--- NOTE | 2025-05-20 07:01 | HMH.PROCNOTE ---
[facility] Procedure Note Date: 05/20/25 Time: 13:23 Procedure Note:: Colonoscopy Procedure Report: Colonoscopy Endoscopist: Josias Lazo II, MD Referring physician: CARIDAD Woodward Date of Procedure: May 20, 2025 Equipment: Olympus [id number] adult colonoscope Sedation: MAC sedation Indication: Mrs. Bradford is a 60-year-old female who is here for screening/surveillance colonoscopy. She does have a personal history of adenomatous colon polyps. She did have an initial screening colonoscopy in November 2020 and had 4 adenomatous polyps (4, 4 and 5 mm tubular adenomas x 3 and 12 to 13 mm tubulovillous adenoma x 1) removed. The patient reports no abdominal pain, weight loss, change in her bowel habits or rectal bleeding. She reports no family history of colon cancer. The examination is deemed medically necessary for screening/surveillance colonoscopy. Procedure: Prior to the procedure, a history and physical exam was performed, and patient's medications and allergies were reviewed. The risks, benefits and alternatives of the sedation and procedure were discussed with the patient. All questions were answered and informed consent was obtained. The patient was brought to the procedure room. Patient identification and proposed procedure were verified by the physician and the nurse. The patient was placed in a left lateral decubitus position and the scope was passed under direct vision. Throughout the procedure, the patient's blood pressure, pulse, and oxygen saturations were monitored continuously. The colonoscopy was accomplished without difficulty. The patient tolerated the procedure well. Findings: On digital rectal examination there was normal rectal tone. There were no external hemorrhoids. The colonoscope was introduced through the anal canal to the rectum and advanced to the cecum. The ileocecal valve and appendiceal orifice were identified. The scope was advanced a short distance into the ileum which appeared grossly normal. The scope was then withdrawn into the colon. The cecum, ascending and transverse colon and mucosa were grossly normal. There were mildly scattered diverticuli throughout the descending and sigmoid colon (LEFT colon). The rectum itself was normal. Upon retroflexion within the rectum there were grade 1 internal hemorrhoids. The preparation was excellent throughout with Acme Preparation Score of 9. The cecal time was 12 minutes. Impression: 1. Mild left-sided diverticulosis Plan: The patient did not have any adenomatous polyps and will not require screening/surveillance colonoscopy again for 10 years.
[2025-05-20 11:43] VITALS: BP 147/74; PULSE 76; RESP 16; TEMP 36.4; O2SAT 98
[2025-05-20] MEDS: LACTATED RINGERS 1000ML 1,000 ML 50 ML IV (11:52)
--- NOTE | 2025-05-20 12:19 | EXP.ANES.CKL ---
[facility] Disclaimer: The information contained in this section may have been updated after the patient was seen, as this information can be updated by other users. 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 current occupational exposures/hazards: No caffeine: Yes Have you lived/traveled outside [place] in past 30 days?: No Contact w/someone who lives/traveled outside US past 30 days?: No Exposure to someone with infectious disease in past 14 days?: No Do you have a fever (greater than 100.4 F or 38 C)?: No Have you tested positive for COVID-19?: No Exposed to someone with COVID-19 in past 14 days?: No Do you have a sore throat?: No Do you have a cough?: No Do you have any weakness?: No Do you have any diarrhea?: No Are you experiencing any unusual bleeding?: No Do you have any muscle aches/pain?: No Do you have any abdominal pain?: No Are you experiencing loss of taste or smell?: No [facility] Anesthesia Checklist Patient Identification Patient Identification: Arm Band and Verbal (Name & ) Structural Data Admitted From: Home Planned Operative Procedure/s: colonscopy Consent for Planned Operative Procedure(s) Verified: Yes Verified Documents: Surgical Consent and History and Physical NPO Status Verified Time NPO: 00:00 Additional verifications Anesthesia Reactions: No Previous Colonoscopy: Yes Airway Assessment Mallampati Score:: Class II Dentition: Good Dentition Neurological Assessment Level of Consciousness: Awake, Alert and Appropriate Hx Seizures: No Numbness or tingling in extremities: No Anesthesia Plan Anesthesia Risk discussed: Yes Anesthesia Plan: Verified ASA Class: II Anesthesia Type: MAC
[2025-05-20 13:24] VITALS: BP 120/72; PULSE 80; RESP 16; TEMP 36.2; O2SAT 99
[2025-05-20 13:34] VITALS: BP 141/76; PULSE 72; RESP 16; TEMP 36.2; O2SAT 99
[2025-05-20 13:44] VITALS: BP 140/76; PULSE 74; RESP 16; TEMP 36.2; O2SAT 99
[2025-05-20 13:54] VITALS: BP 142/73; PULSE 72; RESP 16; TEMP 36.2; O2SAT 99
== END 2025-05-20 13:54 | disposition home or self-care (01) ==
PROVIDERS: PCP Nurse Practitioner; Visit Provider Internal Medicine Gastroenterology
PROC: 0DJD8ZZ Inspection of Lower Intestinal Tract, Via Natural or Artificial Opening Endoscopic (ICD-10-PCS; CPT 45378; principal; 2025-05-20 13:00)
DX: Z12.11 Encounter for screening for malignant neoplasm of colon (principal); Z86.0101 Personal history of adenomatous and serrated colon polyps; K57.30 Diverticulosis of large intestine without perforation or abscess without bleeding; K64.0 First degree hemorrhoids
CPT/HCPCS: 45378; J2003; J2704; J7120